=== PATIENT | female | born 1995 | race Two or more races ===

== ENCOUNTER → 2023-09-23 | Outpatient (REF) | payer OTHER | LOC: M SFHCWAGY 13:25 | PROVIDERS: ATTEND Advanced Practice Midwife | DX: Z12.4 Encounter for screening for malignant neoplasm of cervix (principal) ==

== ENCOUNTER → 2024-09-26 | Outpatient (CLI) | payer OTHER ==
[2024-09-26 14:19] LABS: FOLLICLE STIMULATING HORMONE 1.9 mIU/ML; LUTEINIZING HORMONE 2.1 mIU/ML; PROLACTIN 11.52 NG/ML; THYROID STIMULATING HORMONE 1.366 uIU/ML (0.55-4.78)
[2024-09-26 14:20] LABS: FREE T4 1.09 NG/DL (0.89-1.76)
[2024-09-26 14:54] LABS: HEMOGLOBIN A1c 4.7 % (4.0-6.0)
[2024-09-27 06:07] LABS: DEHYDROEPIANDROSTERONE SULFATE 203 mcg/dL (14-349)
== END ==
LOC: M PLALAB 09:47
PROVIDERS: ATTEND Advanced Practice Midwife
DX: N92.6 Irregular menstruation, unspecified (principal)

== ENCOUNTER → 2024-11-01 | Outpatient (CLI) | payer OTHER | LOC: M WHC 11:52 | PROVIDERS: ATTEND Advanced Practice Midwife | DX: N92.1 Excessive and frequent menstruation with irregular cycle (principal) ==

== ENCOUNTER → 2025-01-01 | Outpatient (CLI) | payer OTHER ==
[2025-01-01 11:03] LABS: ESTRADIOL 55.2 PG/ML; LUTEINIZING HORMONE 2.5 mIU/ML
[2025-01-05 14:37] LABS: ANTI MULLERIAN HORMONE 4.13 ng/mL (0.69-13.39)
[2025-01-06 18:03] LABS: TESTOSTERONE FREE (DIRECT) 2.7 pg/mL (0.1-6.4); TESTOSTERONE TOTAL FOR T&D 19.0 ng/dL (2-45)
== END ==
LOC: M PLALAB 07:55
PROVIDERS: ATTEND Advanced Practice Midwife
DX: N92.1 Excessive and frequent menstruation with irregular cycle (principal)

== ENCOUNTER → 2025-01-19 | Outpatient (CLI) | payer OTHER | LOC: M PLALAB 08:54 | PROVIDERS: ATTEND Advanced Practice Midwife | DX: N92.6 Irregular menstruation, unspecified (principal) ==

== ENCOUNTER → 2025-02-06 | Outpatient (REF) | payer OTHER ==
[2025-02-06 13:00] LABS: IRON (FE) 16.0 UG/DL (50-170); PERCENT SATURATION 3.8 % (13.2-45.0)
== END ==
LOC: M LAB REF 12:13
PROVIDERS: ATTEND Internal Medicine
DX: D64.9 Anemia, unspecified (principal)

== ENCOUNTER 2025-04-15 19:12 | Emergency (ER) | payer OTHER ==
[~2025-04-15] VITALS: Ht 157.5 cm; Wt 88.9 kg
[2025-04-16] MEDS ORDERED: SODI1SOL7 OD (01:43)
[2025-04-16 01:56] VITALS: BP 125/68; TEMP 98; O2SAT 97
== END 2025-04-16 01:59 | disposition home or self-care (01) ==
LOC: M ED 19:12
DX: H11.31 Conjunctival hemorrhage, right eye (principal)